=== PATIENT | male | born 1975 | race Hispanic/Latino ===

== ENCOUNTER 2017-07-29 05:33 | Emergency (ER) | payer OTHER ==
[~2017-07-29] VITALS: Ht 170.2 cm; Wt 190.9 kg
[~2017-07-29 05:33] MED LIST: CEFU500T61 PO; INSU100V27 SQ; INSU300I SQ; LISI-571 PO
[2017-07-29 05:35] VITALS: BP 133/85; PULSE 92; RESP 16; O2SAT 99
[2017-07-29 06:45] LABS: BASOPHILS % (AUTO) 0.4 % (0-3); EOSINOPHILS % (AUTO) 1.4 % (0-5); MONOCYTES % (AUTO) 5.8 % (4-12); Mean Corpuscular Hemoglobin 25.6 pg (27.0-35.0); Mean Corpuscular Volume 82.6 fL (81-100); NEUTROPHILS % (AUTO) 72.1 % (40-74); Platelet Count 325 bil/L (150-400)
[2017-07-29 07:01] LABS: TROPONIN T 0.01 ug/L (0.0-0.011)
--- NOTE | 2017-07-29 07:55 | ED.REPORT ---
HPI-General Illness Date of Service Jul 29, 2017 ED Provider: Cari Morales MD The pt is a 42 y/o male w/ a hx of Type 2 diabetes, GERD presenting to the ED complaining of R sided chest pain onset 3 days ago. The pain is constant, dull, and he feels it more when he takes a deep breath. He has also had a non- productive cough for the last month. Denies a productive cough, or peripheral edema. The pt had a sleep study done last night because he has a scheduled gastric bypass and needs to be on a CPAP for a month before the surgery. 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 Nursing Notes Stated Complaint: CHEST PAIN Chief Complaint: Chest Pain Nursing Notes Reviewed: Yes Allergies: Coded Allergies: Sulfa (Sulfonamide Antibiotics) (Verified Allergy, Intermediate, Rash, ) Scheduled Azithromycin (Azithromycin) 500 Mg Tablet 500 MG PO DAILY 2 now, then one daily for 4 more days Cefuroxime Axetil (Cefuroxime) 500 Mg Tablet 500 MG PO BID Insulin Glargine,Hum.rec.anlog (Toujeo Solostar) 300 Unit/Ml (1.5 Ml) Insuln.pen 120 SQ HS Insulin Regular, Human (Novolin-R U100 Insulin Vial) 100 Unit/1 Ml Vial 25 UNITS SQ TIDWM Lisinopril (Lisinopril) 5 Mg Tablet 5 MG PO DAILY General Time Seen by MD: 06:20 Chief Complaint Chest pain Hx Obtained From: Patient Sudden in Onset?: Yes Onset Occurred: 3 days ago Symptom Duration: Since onset Recent Healthcare: No recent hospitalization, Recent doctor visit Similar Sx Previous: No Past Medical History Past Medical History Notes: PCP: Melanie Xie Past Medical History 1. History of cellulitis and follicular abscess 2. He also is undergoing evaluation for work-related injury in the left knee. 3. Obesity Reports: Diabetes mellitus, GERD Past Surgical History knee surgery Family History Mother: pacemaker placed Father: type 2 diabetes Smoking History Never Smoker Social History Pt is a chemical dependency counselor at [employer] Alcohol Use: Denies alcohol use Drug Use: Denies drug use Other Social History: Ambulatory Status Independent Review of Systems Full Review of Systems Respiratory: Reports: Non-productive cough, Denies: Prod cough, clear Cardiovascular: Reports: Chest pain, Denies: Edema Complete sys rev & neg: except as marked. Physical Exam Vital Signs Vital Signs Date Time Temp Pulse Resp B/P Pulse Ox O2 Delivery O2 Flow Rate FiO2 07/29/17 05:35 36.9 92 16 133/85 99 Room Air Initial VS: Reviewed General/Constitutional: Well-developed, Well-nourished Head / Eyes: Atraumatic, Normocephalic, PERRL ENT: Mucous membranes moist, Conjunctiva normal, No scleral icterus Neck: Supple, Non-tender, Full range of motion Skin: Warm, Dry, No cyanosis Neurologic: Alert, Oriented, Nonfocal Psychiatric: Mood/affect normal, Behavior normal, Normal thought content Respiratory / Chest: No respiratory distress R sided lower lobe rhonchi Cardiovascular: Heart rate NL, Regular rhythm, Heart sounds NL Lower Ext Edema: Positive: Bilateral 1+ (pitting ) Interpretation & Diagnostics Lab Results Interpretation Result Diagram: 07/29/17 0605 07/29/17 0605 Test 07/29/17 05:47 07/29/17 06:05 Hold Purple Top Tube Received (Received) Hold Blue Top Tube Received (Received) Hold [place] Top Tube Received (Received) Hold Day Top Tube Received (Received) White Blood Count 13.9th/mm3 (3.8-10.1) Red Blood Count 5.16mil/mm3 (4.40-5.80) Hemoglobin 13.2g/dL (13.8-17.2) Hematocrit 42.6% (41.0-50.0) Mean Corpuscular Volume 82.6fL (81-100) Mean Corpuscular Hemoglobin 25.6pg (27.0-35.0) Mean Corpuscular Hemoglobin Concent 31.0% (32.0-37.0) Red Cell Distribution Width 16.6% (12.3-15.4) Platelet Count 325bil/L (150-400) Neutrophils (%) (Auto) 72.1% (40-74) Lymphocytes (%) (Auto) 19.8% (14-46) Monocytes (%) (Auto) 5.8% (4-12) Eosinophils (%) (Auto) 1.4% (0-5) Basophils (%) (Auto) 0.4% (0-3) D-Dimer < 0.50mg/L FEU (<0.50) Sodium Level 136mEq/L (134-144) Potassium Level 4.7mEq/L (3.5-5.2) Chloride Level 100mEq/L (97-108) Carbon Dioxide Level 20mmol/L (18-29) Blood Urea Nitrogen 12mg/dL (6-24) Creatinine 0.64mg/dL (0.76-1.27) Estimat Glomerular Filtration Rate 144mL/min (>59) Glucose Level 136mg/dL (60-99) Calcium Level 8.9mg/dL (8.5-10.1) Magnesium Level 2.0mg/dL (1.6-2.6) Total Bilirubin 0.4mg/dL (0.0-1.2) Aspartate Amino Transf (AST/SGOT) 28U/L (0-50) Alanine Aminotransferase (ALT/SGPT) 23U/L (0-44) Alkaline Phosphatase 87U/L (25-150) Troponin T 0.010ug/L (0.0-0.011) Total Protein 8.3g/dL (6.4-8.4) Albumin 3.5g/dL (3.4-5.0) X-Ray Chest Interpretation Chest Xray Interpretation: IMPRESSION: No acute cardiopulmonary disease process. Dictated by: Rachna Mckeon MD, PhD on 07/29/2017 at 8:43 Approved by: Rachna Mckeon MD, PhD on 07/29/2017 at 8:44 View: Portable, 1 view Interpretation / Wet Read by: Interpret - Radiologist Re-Eval/Medical Decision Med Decision/Clinical Course 42-year-old gentleman presents with slight right-sided chest pain for 3 days with cough. Chest x-ray consistent with developing pneumonia as well as clinical exam. 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 He states that he does have regular screening through work and was recently tested and has always screened negative. Source of Hx: Old records Time of Eval: 08:53 Re-Evaluation/Progress Note: Pt rechecked. Informed pt of plan for treatment. Pt understands and agrees with plan for treatment. F/U instructions and RTER warnings given. All questions addressed. Counseled Regarding: Diagnosis, Lab results, Need for follow-up, When/why to return to ED Discharge & Departure Primary Impression: Community acquired pneumonia Disposition: Home Discharge Condition All VS Reviewed: Yes Condition: Stable Additional Instructions: Thank for you entrusting us with your care today. You were diagnosed with pneumonia. Fortunately, it is not severe enough to need admission to the hospital. Your oxengen levels, blood pressure, heart rate, lab work and chest xray all show a pneumonia that should respond nicely to oral antibiotics. Please take the Azithromycin as soon as you pick it up. Two pills immediately then one daily for 4 more days and I suspect you will feel much better. If the cough does not go away after two weeks after stopping the antibiotics you should see your primary care provider for further evaluation. Please return to the emergency department if you experience any new or worsening symptoms. I hope you feel better soon. Referrals: Melanie Xie (PCP) Scribe Attestation Portions of this note were transcribed by Fortino Bella. I, Dr. Morales personally performed the history, physical exam and medical decision-making; I reviewed and confirmed the accuracy of the information in the transcribed note. copies to: Melanie Xie Shawna L MD Jul 29, 2017 07:55 Fortino Bella Jul 29, 2017 08:33
--- NOTE | 2017-07-29 08:46 | DRSVH ---
PROCEDURE: X-RAY CHEST ONE VIEW, PORTABLE ([id number]) INDICATIONS: chest pain TECHNIQUE: One view of the chest was acquired. COMPARISON: [facility], , CHEST 1VW (PORTABLE), 04/02/2015, 13:20. FINDINGS: Surgical changes and devices: None. Lungs and pleura: No pleural effusions or pneumothorax. Lungs are clear. Mediastinum: Mediastinal contours appear normal. Heart size is normal. Bones and chest wall: No suspicious bony lesions. Overlying soft tissues appear unremarkable. IMPRESSION: No acute cardiopulmonary disease process. Dictated by: Rachna Mckeon MD, PhD on 07/29/2017 at 8:43 Approved by: Rachna Mckeon MD, PhD on 07/29/2017 at 8:44
[2017-07-29] MEDS ORDERED: AZIT500T5 PO (08:47)
== END 2017-07-29 09:04 | disposition home or self-care (01) ==
LOC: SED 05:33
DX: J18.9 Pneumonia, unspecified organism (principal); E11.9 Type 2 diabetes mellitus without complications; K21.9 Gastro-esophageal reflux disease without esophagitis; Z95.0 Presence of cardiac pacemaker; Z79.4 Long term (current) use of insulin; Z88.2 Allergy status to sulfonamides